=== PATIENT | female | born 1975 | race Caucasian/White ===

== ENCOUNTER 2019-10-24 10:22 | Outpatient (CLI) | payer BC ==
--- NOTE | 2019-10-24 11:10 | RAD ---
EXAM: Lumbar spine 3 views: HISTORY: Low back pain, M54.4 2 COMPARISON: None FINDINGS: Minimal spondylosis. No evidence for acute fracture or dislocation or significant acute process. No evidence for significant malalignment. Disc spaces are adequately preserved. No evidence for a focal bone lesion. IMPRESSION: Unremarkable spine.
--- NOTE | 2019-10-24 11:12 | RAD ---
Exam: Sacrum and coccyx 3 views: HISTORY: Low back pain M 54.4 1 COMPARISON: None FINDINGS: Mild arthrosis changes of the SI joints and both hip joints. No evidence for fracture, dislocation, or other significant acute osseous abnormality. IMPRESSION: No significant acute process.
== END 2019-10-24 10:23 | disposition home or self-care (01) ==
LOC: NAV RAD 10:22
PROVIDERS: ATTEND Family Medicine
DX: M54.41 Lumbago with sciatica, right side (principal); M54.42 Lumbago with sciatica, left side
CPT/HCPCS: 72100; 72220